=== PATIENT | male | born 1985 | race Caucasian/White ===

== ENCOUNTER 2019-12-12 13:18 | Emergency (ER) | payer OTHER ==
[~2019-12-12] VITALS: Ht 182.9 cm; Wt 90.7 kg
[2019-12-12 13:32] VITALS: BP 126/81
[2019-12-12] MEDS ORDERED: IBU600 MG PO (13:53)
[2019-12-12] MEDS ORDERED: TOBRADEX EYE DRO5 ML TOP (13:53)
== END 2019-12-12 14:08 | disposition home or self-care (01) ==
LOC: M.ERS 13:18
DX: H18.821 Corneal disorder due to contact lens, right eye (principal)